=== PATIENT | female | born 1970 | race Caucasian/White ===

== ENCOUNTER 2023-01-27 15:00 | Inpatient (IN) | payer OTHER ==
[2023-01-30] MEDS ORDERED: Thrombin 5000 UNITS/5 ML VIAL ONE (06:09)
[2023-01-30] MEDS ORDERED: Neomycin-Polymyxin 1 ML AMP ONE (06:09)
[2023-01-30] MEDS ORDERED: Dexmedetomidine 200 MCG/2 ML VIAL ONE (06:12)
[2023-01-30] MEDS ORDERED: Fentanyl 250 MCG/5 ML VIAL ONE (06:12)
[2023-01-30] MEDS ORDERED: Midazolam HCl 2 mg/2 ml Vial ONE (06:54)
[2023-01-30] MEDS ORDERED: Sodium Chloride 0.9% 100 ML ONE (06:54)
[2023-01-30] MEDS ORDERED: CEFAZOLIN 2 GM VIAL ONE (06:54)
[2023-01-30 07:08] LABS: #Eosinphils 0.1 thou/uL (0.0-0.7); #Lymphocytes 1.7 thou/uL (1.20-3.40); #Monocytes 0.5 thou/uL (0.11-0.59); #Neutrophils 2.6 thou/uL (1.40-6.50); %Basophils 0.8 % (0.0-1.0); %Lymphocytes 34.7 % (21.0-51.0); %Neutrophils 51.6 % (42.0-75.0); Hemoglobin 13.4 g/dL (12.0-16.0); Mean Corpuscular HGB CONC 33.2 g/dL (32.0-36.0); Mean Corpuscular Hemoglobin 31.9 pg (27.0-31.0); Mean Corpuscular Volume 96.1 fl (78.0-98.0); Mean Platelet Volume 8.9 fL (7.4-10.4); Platelet Count 238 10x3/uL (130-400); RBC Distribution Width 12.7 % (11.5-14.5); Red Blood Cell (RBC) Count 4.19 mill/uL (4.20-5.40)
[2023-01-30] MEDS ORDERED: NEOSTIGMINE 3 MG/3 ML SYR 3 MG/3 ML SYRINGE ONE (07:08)
[2023-01-30] MEDS ORDERED: Ondansetron PF 4 MG/2 ML Vial ONE (07:08)
[2023-01-30] MEDS ORDERED: Rocuronium Bromide 10 MG/ML (10ML VIAL) ONE (07:08)
[2023-01-30] MEDS ORDERED: Lidocaine 1% PF 5 ML VIAL ONE (07:08)
[2023-01-30] MEDS ORDERED: Glycopyrrolate 0.2 MG/ML 5 ML SYRINGE ONE (07:08)
[2023-01-30] MEDS ORDERED: PROPOFOL 200 MG/20 ML VIAL ONE (07:08)
[2023-01-30] MEDS ORDERED: Dexamethasone 20 MG/5 ML VIAL ONE (07:08)
[2023-01-30 07:26] LABS: INR-International Normal Ratio 1.2; Prothrombin Time 15.4 sec (12.0-14.7)
[2023-01-30 07:27] LABS: PTT 30.5 sec (22.9-36.1)
[2023-01-30 07:48] LABS: SARS-CoV-2 NAA Rapid Test Not Detected (NotDetected)
[2023-01-30] MEDS ORDERED: Promethazine HCl 25 MG/ML VIAL IM PRN ×2 (12:14→12:45)
[2023-01-30] MEDS ORDERED: Ondansetron HCl/PF 4 MG/2 ML Vial IVP PRN (12:14)
[2023-01-30] MEDS ORDERED: HYDROmorphone 2 MG/ML VIAL SLOW IVP PRN (12:14)
[2023-01-30] MEDS ORDERED: Morphine 2 MG/ML VIAL SLOW IVP PRN (12:45)
[2023-01-30] MEDS ORDERED: Acetaminophen/Codeine 30-300mg Tablet PO PRN (12:45)
[2023-01-30] MEDS ORDERED: diphenhydrAMINE 50 MG/ML VIAL IVP PRN (12:45)
[2023-01-30] MEDS ORDERED: Prochlorperazine 10 MG/2 ML VIAL IM PRN (12:45)
[2023-01-30] MEDS ORDERED: Promethazine HCl 12.5 MG SUPP PR PRN (12:45)
[2023-01-30] MEDS ORDERED: diphenhydrAMINE 25 MG CAP PO PRN (12:45)
[2023-01-30] MEDS ORDERED: Promethazine 25 MG TAB PO PRN (12:45)
[2023-01-30] MEDS ORDERED: FENTANYL 50 MCG/ML 1 ML VIAL ONE ×3 (12:54→13:39)
[2023-01-30] MEDS ORDERED: Scopolamine 1.5 mg/72 hour Patch TD SCH (14:00)
[2023-01-30] MEDS: Sodium Chloride 0.9% 1,000 ML IV SCH (15:03)
[2023-01-30] MEDS: CEFAZOLIN 2 GM in Sodium Chloride 0.9% 100 ML IVPB SCH ×2 (15:04→20:25)
[2023-01-30] MEDS: Acetaminophen/Codeine 30-300mg Tablet PO PRN ×2 (16:52→20:25)
[2023-01-30] MEDS: Flecainide 50 MG TAB PO SCH (18:13)
[2023-01-30] MEDS: Cyclobenzaprine 10 MG TAB PO PRN (20:25)
[2023-01-31] MEDS: Acetaminophen/Codeine 30-300mg Tablet PO PRN ×3 (01:09→07:40)
[2023-01-31] MEDS: Sodium Chloride 0.9% 1,000 ML IV SCH (01:12)
[2023-01-31] MEDS ORDERED: Levothyroxine Sodium 125 MCG TAB PO SCH (06:00)
[2023-01-31] MEDS: Flecainide 50 MG TAB PO SCH (06:25)
[2023-01-31] MEDS ORDERED: Dexamethasone 4 mg/ml Vial SLOW IVP SCH (09:00)
[2023-01-31] MEDS ORDERED: Morphine ER 30 MG TAB PO SCH (09:00)
[2023-01-31] MEDS: Cyclobenzaprine 10 MG TAB PO PRN (11:14)
[2023-02-02] MEDS ORDERED: FLU VACC QS2022-23(6MOS UP)/PF 60 MCG/0.5 ML SYRINGE IM ONE (19:15)
== END 2023-01-31 13:30 | disposition home or self-care (01) | DRG 472 ==
LOC: SURG A 01-30 05:27 → SURG B 01-30 14:43
PROVIDERS: ADMIT Neurological Surgery; ATTEND Neurological Surgery
PROC: 0RG20A0 Fusion of 2 or more Cervical Vertebral Joints with Interbody Fusion Device, Anterior Approach, Anterior Column, Open Approach (ICD-10-PCS; principal; 2023-01-30)
PROC: 0RB30ZZ Excision of Cervical Vertebral Disc, Open Approach (ICD-10-PCS; 2023-01-30)
DX: M50.11 Cervical disc disorder with radiculopathy, high cervical region (principal); M50.01 Cervical disc disorder with myelopathy, high cervical region; M43.12 Spondylolisthesis, cervical region; M53.2X2 Spinal instabilities, cervical region; Z20.822 Contact with and (suspected) exposure to COVID-19; F41.9 Anxiety disorder, unspecified; E78.00 Pure hypercholesterolemia, unspecified; I10 Essential (primary) hypertension; M25.78 Osteophyte, vertebrae; Z90.49 Acquired absence of other specified parts of digestive tract; Z87.891 Personal history of nicotine dependence; Z79.899 Other long term (current) drug therapy; Z79.51 Long term (current) use of inhaled steroids; Z79.890 Hormone replacement therapy; Z79.82 Long term (current) use of aspirin; Z88.6 Allergy status to analgesic agent; Z88.5 Allergy status to narcotic agent
CPT/HCPCS: 85025; 85610; 85730; C1713; C1768; J1100; J2250; J2272; J3010; J3490; J7050; U0002